=== PATIENT | male | born 1980 | race Caucasian/White ===

== ENCOUNTER 2017-01-06 16:00 | Emergency (ER) | payer OTHER ==
[~2017-01-06] VITALS: Ht 180.3 cm; Wt 91.0 kg
[2017-01-06 16:07] VITALS: BP 131/86; PULSE 69; RESP 16; TEMP 97.9; O2SAT 99
--- NOTE | 2017-01-06 16:48 | PD ---
HPI Chief Complaint: Musculoskeletal Complaint Time Seen by Provider: 16:34 Travel History International Travel<30 days: No Contact w/Intl Traveler<30days: No Traveled to known affect area: No History of Present Illness HPI This 36-year-old male is complaining of pain in his right calf. This been having this pain for about for 5 days. 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 He does try to get up. He does not take aspirin or any other medication. He has never had a blood clot. He does exercise fairly vigorously at times and wonders if he might have pulled a muscle. PFS Past Medical History Medical History: Denies Significant Hx Diminished Hearing: No Influenza Vaccination: No ?: Not Social History Alcohol Use: Yes Tobacco Use: No Allergies-Medications (Allergen,Severity, Reaction): Coded Allergies: No Known Allergies (Unverified , 01/06/17) Reported Meds & Prescriptions Reported Meds & Active Scripts Active No Active Prescriptions or Reported Medications Review of Systems General / Constitutional: No: Fever, Chills HENT: No: Headaches Cardiovascular: No: Chest Pain or Discomfort Respiratory: No: Shortness of Breath Gastrointestinal: No: Vomiting Musculoskeletal: Positive: Myalgias, Pain Skin: No Rash Physical Exam Narrative GENERAL: Well-developed male. No acute distress SKIN: Focused skin assessment warm/dry. HEAD: Atraumatic. Normocephalic. EYES: Pupils equal and round. No scleral icterus. No injection or drainage. ENT: No nasal bleeding or discharge. Mucous membranes pink and moist. NECK: Trachea midline. No JVD. MUSCULOSKELETAL: No obvious deformities. No clubbing. No cyanosis. No edema. There is some tenderness in the midportion of the right calf. I will only abnormality at this site. There is no edema. Pulses are good. Homans sign is negative NEUROLOGICAL: Awake and alert. No obvious cranial nerve deficits. Motor grossly within normal limits. Normal speech. PSYCHIATRIC: Appropriate mood and affect; insight and judgment normal. Data Data Last Documented VS Vital Signs Date Time Temp Pulse Resp B/P Pulse Ox O2 Delivery O2 Flow Rate FiO2 01/06/17 16:07 97.9 69 16 131/86 99 Orders Us Leg Venous Doppler (01/06/17 16:40) MDM Medical Decision Making Medical Screen Exam Complete: Yes Emergency Medical Condition: Yes Medical Record Reviewed: Yes Differential Diagnosis Differential includes muscle strain, DVT Narrative Course Ultrasound of the right leg is negative for DVT. Diagnosis Primary Impression: Muscle strain of right lower leg Qualified Code: S86.911A - Muscle strain of right lower leg, initial encounter Scripts No Active Prescriptions or Reported Meds Disposition: 01 DISCHARGE HOME Condition: Stable Jono Dillon MD Jan 06, 2017 16:47
--- NOTE | 2017-01-06 18:18 | RADHPO ---
EXAM DATE/TIME: 01/06/2017 17:29 [facility] COMPARISON: No previous studies available for comparison. INDICATIONS : Right leg pain. MEDICAL HISTORY : Right leg pain. SURGICAL HISTORY : Right knee surgery. ENCOUNTER: Initial ACUITY: 4 - 6 days PAIN SCORE: 3/10 LOCATION: Right leg. TECHNIQUE: Venous ultrasound of the leg was performed from the inguinal ligament to the proximal calf. Real-naye e, color Doppler and spectral tracing, compression and augmentation techniques were used. FINDINGS: There is normal compressibility of the deep venous system from the inguinal region to the proximal ca lf. No echogenic clot is seen in the lumen of the common femoral, femoral, popliteal, and posterior tibial veins. There is a normal response of the venous system to proximal and distal augmentation an d respiration. CONCLUSION: No DVT in the right leg. Antonio Mendez MD on January 06, 2017 at 18:16 Board Certified Radiologist. This report was verified electronically.
== END 2017-01-06 18:34 | disposition home or self-care (01) ==
LOC: PHED 16:00
DX: S86.911A Strain of unspecified muscle(s) and tendon(s) at lower leg level, right leg, initial encounter (principal); X58.XXXA Exposure to other specified factors, initial encounter
CPT/HCPCS: 93971; 99284